=== PATIENT | male | born 1935 | race Caucasian/White ===

== ENCOUNTER 2020-09-15 09:09 | Outpatient (CLI) | payer MEDICARE, SELFPAY | END 2020-09-15 09:10 | disposition home or self-care (01) | LOC: ANHCOVIDVC 09:09 | PROVIDERS: PCP Podiatrist Foot & Ankle Surgery | DX: Z23 Encounter for immunization (principal) | CPT/HCPCS: 0001A; 91300 ==

== ENCOUNTER 2020-10-06 09:19 | Outpatient (CLI) | payer MEDICARE, SELFPAY | END 2020-10-06 09:20 | LOC: ANHCOVIDVC 09:24 | PROVIDERS: PCP Podiatrist Foot & Ankle Surgery | DX: Z23 Encounter for immunization (principal) | CPT/HCPCS: 0002A; 91300 ==